=== PATIENT | female | born 2000 | race Caucasian/White ===

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

== ENCOUNTER → 2024-02-18 04:40 | Outpatient (CLI) | payer MEDICAID, SELFPAY ==
--- NOTE | 2024-02-18 06:30 | DI.US_ITS ---
Exam(s) US SOFT TISSUE HEAD OR NECK EXAM: US SOFT TISSUE HEAD OR NECK CLINICAL HISTORY: evaluate pathology,lt cheek mass,r22.0. TECHNIQUE: Ultrasound was performed using standard protocol. COMPARISON: None FINDINGS: Dedicated ultrasound examination of the area of concern on the left side of the face. There is a well-defined solid mass in the subcutaneous tissues at this level which measures 2.8 x 2.0 x 2.8 cm. This mass is solid but is relatively avascular. Smooth borders. IMPRESSION: Solid well-defined mass measuring 2.8 x 2.0 x 2.8 cm DATA REPOSITORY:
== END ==
PROVIDERS: PCP Physician Assistant Medical; Visit Provider Nurse Practitioner Family
DX: R22.0 Localized swelling, mass and lump, head (principal)
CPT/HCPCS: 76536

== ENCOUNTER 2024-04-11 17:03 | Outpatient (REF) | payer MEDICAID, SELFPAY ==
--- NOTE | 2024-04-11 14:20 | PAPFT_PTH ---
PATIENT: Negin Lackey LOC: [facility] U#:[id number] AGE/SX: 23/F ROOM: RE04/11/[address]: Ingris Gerber MD : 2000 BED: DIS: 04/11/2024 SPEC #: [id number] RECD: 04/11/24 17:27 STATUS: JAVIER SAWANT #: [id number] MARCELL: 04/11/24 14:[address]: Ingris Gerber DEPT: [facility] Cytology RECD BY: Flor Brooks ENTERED: 04/11/24 17:28 SP TYPE: PAPFT OTHR DR: Iram Negrete, RENE Tissues: 1 - CX/ENDOCX FOR PAP SMEARS Procedures: PAP THIN PREP/UVM Screening HPV DNA PROBE Comments: [id number] (HPV 16 & 18/45)
== END 2024-04-11 17:04 | disposition home or self-care (01) ==
LOC: LBN 17:03
PROVIDERS: PCP Nurse Practitioner Family; Visit Provider Obstetrics & Gynecology
DX: Z01.419 Encounter for gynecological examination (general) (routine) without abnormal findings (principal)
CPT/HCPCS: 88142; 87624

== ENCOUNTER → 2024-04-14 02:14 | Outpatient (CLI) | payer MEDICAID, SELFPAY ==
--- OUTSIDE RECORDS SUMMARY | 2024-04-14 02:25 | XMS_ITS | Encounter Summary ---
[place] [address] Care Team Providers Care Catheter Builder Name Role Phone Jose Miguel Pickard Primary Care Provider +1- [phone] Reason for Referral * Consultation (Routine) - Pending Review Specialty Diagnoses / Procedures Referred By Preeti anguiano Referred To Contact Plastic Surgery Diagnoses Localized swelling, mass and lump, head Lipoma on left cheek recently changing in size (has had for 4 years Vivian Sharp APRN [address] [place] [address] [facility] Plastic Surg [address] [place] [phone] Referral ID Status Reason Start Date Expiration Date Visits Requested Visits Authorized [id number] Pending Review Consult, Test & Treat PCP Updated and/or Approved 02/15/2024 02/14/2025 6 6 Encounter Details Date Type Department Care Team (Late st Contact Info) Description 03/04/2024 Transcribe Orders eDH Incoming Referrals [phone] Vivian Sharp APRN [address] [place], [place] [address] Localized swelling, mass and lump, head Social History Tobacco Use Types Packs/Day Years Used Date Smoking Tobacco: Never Assessed Sex and Gender Information Value Date Recorded Sex Assigned at Not on file Gender Identity Not on file Sexual Orientation Not on file documented as of this encounter Plan of Treatment Upcoming Encounters Date Type Department Care Team (Late st Contact Info) Description 04/21/2024 1:30 PM EDT Office [place] [address] Luis Carlos Gregg MD [facility] [place] [address] Scheduled Referrals Name Type Priority Associated Diagnoses Orde r Schedule Referral to Plastic Surgery Outpatient Referral Routine Localized swelling, mass and lump, head Ordered: 03/04/2024 documented as of this encounter Visit Diagnoses Diagnosis Localized swelling, mass and lump, head documented in this encounter Care Teams Catheter Builder Relationship Specialty Start Date End Date Jose Miguel Pickard PA [address] [place] [address] PCP - General Family Medicine 03/04/24 documented as of this encounter
--- OUTSIDE RECORDS SUMMARY | 2024-04-14 02:25 | XMS_ITS | Encounter Summary ---
Author Organization [facility] [place] [address] Care Team Providers Care Financial Services Auditor Name Role Phone Unknown Primary Care Provider Unavailabl e Encounter Details Date Type Department Care Team (Late st Contact Info) Description 02/18/2024 Ancillary Procedure [place] [phone] Nader Marquez MD [facility] [place] [address] Social History Tobacco Use Types Packs/Day Years [...] PM EDT Office Visit [place] [phone] Luis Carlos Gregg MD [facility] [address] documented as of this encounter Procedures Procedure Name Priority Date/Time Associated Diagnosis Comments FILM LIBRARY STORAGE ONLY ULTRASOUND STUDY Routine 02/18/2024 12:00 AM EDT documented in this encounter Results * Film Library- Storage Only Ultrasound Study (02/18/2024 12:00 AM EDT) Narrative [facility] - 02/26/2024 4:00 PM EDT This exam is auto-finalizing. It's purpose is for storage only. Nader Marquez MD IMG FILM LIBRARY ORD ERABLES [place], [place] documented in this encounter Visit Diagnoses Not on filedocumented in this encounter Care Teams Financial Services Auditor Relationship Specialty Start Date End Date Unknown None PCP - General 01/24/22 03/03/24 documented as of this encounter
--- OUTSIDE RECORDS SUMMARY | 2024-04-14 02:25 | XMS_ITS | Clinical Summary ---
Author Organization [facility] [place] [address] Care Team Providers Care Paper Twister Tender Name Role Phone Jose Miguel Pickard Primary Care Provider +1- [phone] Encounters Date Type Department Care Team Description 03/04/2024 Transcribe Orders eDH Incoming Referrals [phone] Vivian Sharp, RECREATION ESTABLISHMENT MANAGER Localized swelling, mass and lump, head 02/18/2024 Ancillary Procedure [place] [phone] Nader Marquez MD from Last 3 Months Social History Tobacco Use Types Packs/Day Years Used Date Smoking Tobacco: Never Assessed Sex and Gender Information Value Date Recorded Sex Assigned at Not on file Gender Identity Not on file Sexual Orientation Not on file Plan of Treatment Upcoming Encounters Date Type Department Care Team (Late st Contact Info) Description 04/21/2024 1:30 PM EDT Office [place] [address] Luis Carlos Gregg MD [facility] [place] [address] Health Maintenance Due Date Last Done Comments Chlamydia Screening 2016 HPV vaccine (1 - 3-dose series) 2016 HIV screen 2019 Hepatitis C Screening 2019 Hepatitis B vaccine (0-59 yrs) (1) 2020 Tdap adult 2020 Tetanus vaccine 2020 PAP Smear 2022 Covid-19 Vaccine (1 - 2022-24 season) 2023 Influenza (Flu) vaccine (1 o f 1 - Influenza standard series) 05/11/2024 Procedures Procedure Name Priority Date/Time Associated Diagnosis Comments FILM LIBRARY STORAGE ONLY ULTRASOUND STUDY Routine 02/18/2024 12:00 AM EDT ULTRASOUND SCAN (SCAN) 02/18/2024 12:00 AM EDT from Last 3 Months Results * Scan Doc: Ultrasound (02/18/2024 12:00 AM EDT) Anatomical Region Laterality Modality Other Narrative 02/18/2024 12:00 AM EDT Ordered by an unspecified provider. Scanning Provider MEDIA MGR SCAN EXT O RDR/RSLT * Film Library- Storage Only Ultrasound Study (02/18/2024 12:00 AM EDT) Narrative [facility] - 02/26/2024 4:00 PM EDT This exam is auto-finalizing. It's purpose is for storage only. Nader Marquez MD IMG FILM LIBRARY ORD ERABLES [place], [place] from Last 3 Months Care Teams Paper Twister Tender Relationship Specialty Start Date End Date Jose Miguel Pickard PA [address] [place], [place] [id number] PCP - General Family Medicine 03/04/24
--- NOTE | 2024-04-14 14:30 | DI.US_ITS ---
APPROVED REPORT EXAM: Comprehensive 2D, Doppler, and color-flow Echocardiogram Patient Location: Out-Patient Market Sales Manager: Raghav Estrada RDCS (AE) Indications: New murmur Conclusion Normal left ventricular wall thickness and chamber size. Ejection fraction is 65%. Wall motion is n ormal Normal right ventricular size and function Both atria are normal in size There is no structural or hemodynamically significant valvular disease Wall motion Left Ventricle The left ventricle is normal size. Left ventricular systolic function is normal. The left ventricular ejection fraction is within the normal range. There is normal left ventricular wall thickness. There is normal LV segmental wall motion. The left ventricular diastolic function is normal. There is no v entricular septal defect visualized. LVEF is 65%. Right Ventricle The right ventricle is normal size. The right ventricular systolic function is normal. Atria The left atrium size is normal. The right atrium size is normal. The interatrial septum is intact wit h no evidence for an atrial septal defect. Aortic Valve The aortic valve is normal in structure. Aortic valve is trileaflet. There is no aortic valvular sten osis. No aortic regurgitation is present. Mitral Valve The mitral valve is normal in structure. No evidence of mitral valve stenosis. There is no mitral rosa m ve regurgitation noted. Tricuspid Valve The tricuspid valve is normal in structure. There is no tricuspid valve stenosis. Trace tricuspid reg urgitation. Unable to assess PA pressure. Pulmonic Valve The pulmonary valve is normal in structure. There is no pulmonic valvular stenosis. Mild pulmonic reg urgitation. Great Vessels The aortic root is normal in size. The ascending aorta is normal in size. Aortic arch is normal in ca liber. IVC is normal in size and collapses >50% with inspiration. Pericardium There is no pericardial effusion. 2D Dimensions IVSD d PLAX 0.71 cm F: 0.6-1.0 Ao Root d 3.13 cm F: 2.7 - 3.3 LVPW d PLAX 0.67 cm F: 0.6 - 1.0 Ao Asc Diam d 2.74 cm F: 2.3 - 3.1 LVID d PLAX 4.55 cm F: 3.8 - 5.2 LVDs 2.92 cm F: 2.2 - 3.5 LV EF Teichholz 65.4 % FS 35.74 % LV EDV (Teich) 94.9 mL LV ESV (Teich) 32.9 mL Stroke Vol Index (Teich) 36.50 M-Mode TAPSE 2.39 cm (M/F) >1.7 Auto EF LV EDV A4C 99.2 mL LV EDV A2C 110.8 mL LV EDV BP 104.2 mL LV ESV A4C 39.9 mL LV ESV A2C 39.8 mL LV ESV BP 39.1 mL LVEF(%) A4C 59.7 % LVEF(%) A2C 64.1 % LVEF(%) BP 62.4 % LV SV A4C 59.2 ml LV SV A2C 71.0 ml LV SV BP 65.0 ml LV CO A4C 3.3 L/min LV CO A2C 4.1 L/min LV CO BP 3.7 L/min HR A4C 56.25 BPM HR A2C 57.51 BPM LV EDV Index (BP) LA Volume LA Length A4C 4.0 cm LA Length A2C 4.4 cm LA Area A4C s 10.92 cm2 LA Area A2C s 9.96 cm2 LA Vol A4C A-L 25.24 mL LA Vol A2C A-L 19.34 mL LA Vol Biplane A-L 23.0 mL LA Vol/BSA A4C A-L LA Vol/BSA A2C A-L LA Vol/BSA BP A-L 13.5 mL/m2 LA Vol A4C MOD 23.1 mL LA Vol A2C MOD 19.2 mL LA Vol BP MOD 21.7 mL RA Volume RA Area A4C 10.3 cm2 RA ESV A4C (A-L) 22.8mL RA Vol/BSA A4C A-L RA Length A4C 4.0 cm RA ESV A4C (MOD) 20.5mL LV Diastology MV E' medial 0.125 (>0.07 m/s) MV E Vmax 0.93 (0.4-1.3 m/s) MV E/E' MED 7.44 (<14) MV A Vmax 0.45 (0.4-1.3 m/s) MV E' lateral 0.194 (>0.1 m/s) E/A Ratio 2.1 MV E/E' LAT 4.80 (<14) MV E' Average 0.159 m/s MV E/E'(average) 5.84 Aortic Valve AoV Vmax 1.03 m/s LVOT Vmax 1.05 m/s AoV Peak Grad 4.3 mmHg LVOT Peak Grad 4.4 mmHg AoV Area (Vmax) 2.49 cm2 LVOT VTI 0.233 m AoV VTI 0.257 m LVOT Mean Grad 2.4 mmHg AoV Mean Bertram. 0.80 m/s LVOT SV 57.31 mL AoV Mean Grad 2.8 mmHg LVOT Diam s 1.75 cm AoV Area (VTI) 2.23 cm2 AV Regurg Peak Gr. 4.28 mmHg Velocity Ratio 1.02 Mitral Valve MV DT 126 (160-240 msec) MV Vmax TIPS 1.16 m/s MV Mean Grad 1.7 (<2mmHg) MV VTI 0.283 m Pulmonary Valve PV Vmax 1.07 (0.5-1.5 m/s) RVOT Vmax 0.87 m/s PV Peak Grad 4.6 mmHg RVOT Peak Gr. 3.0 mmHg PV Mean Bertram 0.71 m/s RVOT VTI 0.181 m PV Mean Grad 2.4 mmHg RVOT Mean Gr. 1.7 mmHg
== END ==
PROVIDERS: PCP Nurse Practitioner Family; Visit Provider Nurse Practitioner Family
DX: R01.1 Cardiac murmur, unspecified (principal)
CPT/HCPCS: 93306

== ENCOUNTER 2024-04-22 22:01 | Outpatient (REF) | payer MEDICAID, SELFPAY ==
[2024-04-22 22:11] LABS: Abs Immature Grans 0.02 10^3/uL (0.0-0.06); Absolute Basophil Count 0.02 10^3/uL (0.0-0.2); Absolute Eosinophil Count 0.17 10^3/uL (0.0-0.7); Absolute Lymphocyte Count 2.25 10^3/uL (1.2-3.4); Absolute Monocyte Count 0.35 10^3/uL (0.1-0.8); Basophils % 0.3 %; Eosinophils % 2.6 %; HCT 40.2 % (36.0-46.0); HGB 13.5 g/dL (11.2-15.7); Immature Grans % 0.3 %; Lymphocytes % 34.6 %; MCH 30.3 pg (27.0-33.0); MCHC 33.6 % (32.0-36.0); MCV 90 fL (80-95); MPV 10.4 fL (8.0-11.0); Monocytes % 5.4 %; Neutrophils % 56.8 %; Platelet Count 259 10^3/uL (130-400); RBC 4.45 10^6/uL (3.93-5.22); RDW 11.9 % (11.7-14.6); RDW-SD 39.2 fL; WBC 6.51 10^3/uL (4.4-10.8)
--- OUTSIDE RECORDS SUMMARY | 2024-04-22 22:22 | XMS_ITS | Encounter Summary ---
Author Organization [facility] Address [place] [address] Care Team Providers Care Manager Garage Name Role Phone Jose Miguel Pickard Primary Care Provider +1- [phone] Reason for Visit * Reason Comments Advice Only Consult for mass on Lt cheek * Consultation (Routine) - Pending Review Specialty Diagnoses / Procedures Referred By Preeti anguiano Referred To Contact Plastic Surgery Diagnoses Localized swelling, mass and lump, head Lipoma on left cheek recently changing in size (has had for 4 years Vivian Sharp M, TOLL OPERATOR [address] [place] [address] [facility] Plastic Surg [address] [address] Referral ID Status Reason Start Date Expiration Date Visits Requested Visits Authorized [id number] Pending Review Consult, Test & Treat PCP Updated and/or Approved 02/15/2024 02/14/2025 6 6 Encounter Details Date Type Department Care Team (Late st Contact Info) Description 04/21/2024 1:30 PM EDT Office [place] [address] Luis Carlos Gregg MD [facility] [place] [address] Arrived Social History Tobacco Use Types Packs/Day Years Used Date Smoking Tobacco: Former Cigarettes Smokeless Tobacco: Never Tobacco Cessation:Counseling Given: Not Answered Alcohol Use Standard Drinks/Week Comments Yes 0 (1 standard drink = 0.6 oz pur e alcohol) occasional Sex and Gender Information Value Date Recorded Sex Assigned at Not on file Gender Identity Not on file Sexual Orientation Not on file documented as of this encounter Last Filed Vital Signs Vital Sign Reading Time Taken Comments Blood Pressure - - Pulse - - Temperature - - Respiratory Rate - - Oxygen Saturation - - Inhaled Oxygen Concentration - - Weight 63.5 kg (140 lb) 04/21/2024 1:28 PM EDT Height 167.6 cm (5' 6) 04/21/2024 1:28 PM EDT Body Mass Index 22.6 04/21/2024 1:28 PM EDT documented in this encounter Patient Instructions * Patient Instructions* Natalya Spann RN - 04/21/2024 1:30 PM EDT Minor Room Procedure Instructions You were given written and verbal preoperative instructions today. If you are a smoker, we ask that you stop at least 2 months prior to your surgical date and remain nicotine free for at least a month after surgery. Smoking can impair healing and increase your chance of infection. To prepare for your upcoming procedure: Two weeks prior to surgery Do not take any Aspirin or aspirin containing products for the 2 weeks leading up to surgery. You may resume taking 48 hours after surgery. Do not take medications containing Ibuprofen. Do not take any anti-steroidal's such as Advil, Aleve, Celebrex, Daypro, Indocin, Midol, Motrin, Naproxen, Nuprinand Toradol. These medications increase your risk of bleeding. You may resume taking any of these medications 48 hours after surgery. Stop Vitamin E, Garlic supplements, Ginseng, Fish Oil tablets, Ginkgo and Phu's Wort and any other herbals. You may resume taking 48 hours after surgery. If you need medication for pain, you may take Tylenol or extra strength Tylenol during this two week period. One week prior to surgery Please call if you feel ill, have cold or fever, have a rash or breaks in skin near your surgical site. Stay hydrated. Three days before surgery Do not shave near your surgical site One day before surgery Head and Neck Surgery - Wash your face and neck with an antibacterial soap the night before and themorning of surgery. Day of Procedure A otr van cdl truck driver is recommended but not required. There are No dietary restrictions. You may eat and drink up until the time of your procedure. DO NOT wear any jewelry, makeup, emery indonesian or artificial nails. DO NOT apply any lotions, powdersor deodorants near or at surgical site. Do wear comfortable, loose fitting clothes. You will be awake during this procedure. The Surgeon will inject the area of your procedure with a local anesthetic. This will sting/burn. During the procedure, you will have a sensation of pressure but not pain. If you are having hand surgery, a tight cuff may be put on the surgical arm to help prevent bleeding. After your procedure, you will be given written and verbal instructions on how to care for your surgical site. Contact Information: During regular office hours (Sunday- Sunday, non-holiday 8:00 am- 5:00 pm) For an appointment or insurance questions For questions pertaining to your surgical date [phone] For nursing related questions [phone] On weekends, holidays or after office hours: Call [phone] and ask the grinder operator tool to page the Plastic Surgery Resident client solutions specialist. documented in this encounter Plan of Treatment Not on file documented as of this encounter Visit Diagnoses Not on filedocumented in this encounter Care Teams Manager Garage Relationship Specialty Start Date End Date Jose Miguel Pickard PA [address] [place] [address] PCP - General Family Medicine 03/04/24 documented as of this encounter
--- OUTSIDE RECORDS SUMMARY | 2024-04-22 22:22 | XMS_ITS | Encounter Summary ---
[place] [address] Care Team Providers Care Malt Specifications Control Assistant Name Role Phone Jose Miguel Pickard Primary Care Provider +1- [phone] Encounter Details Date Type Department Care Team (Latest Contact Info) Description 04/21/2024 Travel Social History Tobacco Use Types Packs/Day Years Used Date Smoking Tobacco: Former Cigarettes Smokeless Tobacco: Never Alcohol Use Standard Drinks/Week Comments Yes 0 (1 standard drink = 0.6 oz pur e alcohol) occasional Sex and Gender Information Value Date Recorded Sex Assigned at Not on file Gender Identity Not on file Sexual Orientation Not on file documented as of this encounter Plan of Treatment Not on file documented as of this encounter Visit Diagnoses Not on filedocumented in this encounter Care Teams Malt Specifications Control Assistant Relationship Specialty Start Date End Date Jose Miguel Pickard PA [address] [place] [address] PCP - General Family Medicine 03/04/24 documented as of this encounter
--- OUTSIDE RECORDS SUMMARY | 2024-04-22 22:22 | XMS_ITS | Clinical Summary ---
[place] [address] Care Team Providers Care Horse Racetrack Manager Name Role Phone Jose Miguel Pickard Primary Care Provider +1- [phone] Allergies No known active allergies Medications No known medications Active Problems No known active problems Encounters Date Type Department Care Team Description 04/21/2024 1:30 PM EDT Office [place] [address] Luis Carlos Gregg MD Arrived 04/21/2024 Travel 03/04/2024 Transcribe Orders eDH Incoming Referrals [phone] Vivian Sharp APRN Localized swelling, mass and lump, head 02/18/2024 Ancillary Procedure [place] [address] Nader Marquez MD from Last 3 Months [...] on file Sexual Orientation Not on file Last Filed Vital Signs Vital Sign Reading Time Taken Comments Blood Pressure - - Pulse - - Temperature - - Respiratory Rate - - Oxygen Saturation - - Inhaled Oxygen Concentration - - Weight 63.5 kg (140 lb) 04/21/2024 1:28 PM EDT Height 167.6 cm (5' 6) 04/21/2024 1:28 PM EDT Body Mass Index 22.6 04/21/2024 1:28 PM EDT Plan of Treatment Health Maintenance Due Date Last Done Comments [...] Ultrasound Study (02/18/2024 12:00 AM EDT) Narrative [facility] - 02/26/2024 4:00 PM EDT This exam is auto-finalizing. It's purpose is for storage only. Nader Marquez MD G FILM LIBRARY ORD ERABLES [place], [place] from Last 3 Months Care Teams Horse Racetrack Manager Relationship Specialty Start Date End Date Jose Miguel Pickard PA [address] [place] [address] PCP - General Family Medicine 03/04/24
--- OUTSIDE RECORDS SUMMARY | 2024-04-22 22:23 | XMS_ITS | Encounter Summary ---
Author Organization [facility] [place] [address] Care Team Providers Care Road Grader Name Role Phone Unknown Primary Care Provider Unavailabl e Encounter Details Date Type Department Care Team (Late st Contact Info) Description 02/18/2024 Ancillary Procedure [place] [address] Nader Marquez MD [facility] [place] [address] Social History Tobacco Use Types Packs/Day Years Used Date Smoking Tobacco: Never Assessed Sex and Gender Information Value Date Recorded Sex Assigned at Not on file Gender Identity Not on file Sexual Orientation Not on file documented as of this encounter Plan of Treatment Not on file documented as of this encounter Procedures Procedure [...] Marquez MD IMG FILM LIBRARY ORD ERABLES [place], [place] documented in this encounter Visit Diagnoses Not on filedocumented in this encounter Care Teams Road Grader Relationship Specialty Start Date End Date Unknown None PCP - General 01/24/22 03/03/24 documented as of this encounter
--- OUTSIDE RECORDS SUMMARY | 2024-04-22 22:23 | XMS_ITS | Encounter Summary ---
[place] [address] Care Team Providers Care Equipment Operator Name Role Phone Jose Miguel Pickard Primary Care Provider +1- [phone] Reason for Referral * Consultation (Routine) - Pending Review Specialty Diagnoses / Procedures Referred By Preeti anguiano Referred To Contact Plastic Surgery Diagnoses Localized swelling, mass and lump, head Lipoma on left cheek recently changing in size (has had for 4 years Vivian Sharp APRN [address] [place] [address] [facility] Plastic Surg [address] [place] [phone] Referral ID Status Reason Start Date Expiration Date Visits Requested Visits Authorized [id number] Pending Review Consult, Test & Treat PCP Updated and/or Approved 02/15/2024 02/14/2025 6 6 Encounter Details Date Type Department Care Team (Late st Contact Info) Description 03/04/2024 Transcribe Orders eDH Incoming Referrals [phone] Vivian Sharp APRN [address] [place], [place] [address] Localized swelling, mass and lump, head Social History Tobacco Use Types Packs/Day Years Used Date Smoking Tobacco: Never Assessed Sex and Gender Information Value Date Recorded Sex Assigned at Not on file Gender Identity Not on file Sexual Orientation Not on file documented as of this encounter Plan of Treatment Scheduled Referrals Name Type Priority Associated Diagnoses Orde r Schedule Referral to Plastic Surgery Outpatient Referral Routine Localized swelling, mass and lump, head Ordered: 03/04/2024 documented as of this encounter Visit Diagnoses Diagnosis Localized swelling, mass and lump, head documented in this encounter Care Teams Equipment Operator Relationship Specialty Start Date End Date Jose Miguel Pickard PA [address] [place] [address] PCP - General Family Medicine 03/04/24 documented as of this encounter
[2024-04-22 22:33] LABS: ALT 20 U/L (14-59); AST 14 U/L (15-37); Albumin 3.9 g/dL (3.4-5.0); Alkaline Phosphatase 43 U/L (46-116); Anion Gap 7.4 mmol/L (3-11); BUN 10 mg/dL (7-18); Bilirubin, Total 0.32 mg/dL (0.2-1.0); CO2 29.6 mmol/L (21.0-32.0); CREATININE 0.6 mg/dL (0.55-1.02); Calcium 9.3 mg/dL (8.5-10.1); Calculated LDL 38 mg/dL (<100); Chloride 104 mmol/L (98-107); Cholesterol 126 mg/dL (<200); Estimated GFR 130.07 (mL/min/1.73m2); Glucose 91 mg/dL (74-106); HDL Cholesterol 76 mg/dL (40-60); Potassium 3.9 mmol/L (3.5-5.1); Sodium 141 mmol/L (136-145); TSH (W/Ref FT4) 2.25 uIU/mL (0.36-3.74); Triglyceride 61 mg/dL (<150)
[2024-04-22 23:02] LABS: Hemoglobin A1C 5.1 % (<5.7)
== END 2024-04-22 22:02 | disposition home or self-care (01) ==
LOC: LBN 22:01
PROVIDERS: PCP Nurse Practitioner Family; Visit Provider Nurse Practitioner Family
DX: R03.0 Elevated blood-pressure reading, without diagnosis of hypertension (principal); Z00.00 Encounter for general adult medical examination without abnormal findings
CPT/HCPCS: 80053; 80061; 83036; 84443; 85025